=== PATIENT | female | born 1985 | race Caucasian/White ===

== ENCOUNTER 2016-10-04 14:08 | Inpatient (IN) | payer BC, OTHER ==
[~2016-10-04] VITALS: Ht 165.1 cm; Wt 52.2 kg
--- NOTE | 2016-10-04 16:15 | NUR ---
Intake assessment Pt seen down in intake, pt VS are stable, pt cleared to come to unit. Will continue to monitor and further assess pt upon arrival to the unit.
--- NOTE | 2016-10-04 16:40 | NUR ---
Admission Note Pt ambulated on to the unit with MEDICAID BUSINESS ANALYST. Pt is AxOx4. Pt is being admitted for opiate dependence. Pt educated and oriented to unit and procedures. Pt denies any PMhx. Skin check and body check completed, no open wounds noted. pt denies any history of seizures. Pt states that she does not take any medications at home. Pt states that she is allergic to Haldol. Pt states that her PCP is Dr Keen. Refuses to have the pneumococcal vaccine. Denies SI/HI. Pt agreed to HIV testing. Pt states that her LBM was 10/01/16 and that she is constipated but that she does not feel any discomfort, states "this is what happens when I am using". Pt states that her LMP was 09/20/16. VS upon admission were: BP 96/59, HR 93, R: 17, SpO2 98% on RA, T: 98.2, denies any pain, has a COWS of 10. Pt states that she is 5'[address] weighs [address] Antoine has already seen the pt and will be inputting admission orders. Pt reports using the following substances: heroin 0.25G IV daily since 09/24/16, last use was a "small amount" on 10/04/16 in the AM. Pt states that she has smoked an unknown amount of marijuana twice, last use being 10/04/16. Will continue to monitor pt, all needs addressed at this time, pt states that she is comfortable at this time. Pt states that she can not recall her treatment history, pt states "I am currently in treatment, but relapsed after being sober for 90 days".
[2016-10-04 16:41] LABS: *AMPHETAMINE, URINE NEGATIVE (NEGATIVE); *BARBITURATE, URINE NEGATIVE (NEGATIVE); *CANNABINOID, URINE POSITIVE (NEGATIVE); *COCCAINE, URINE NEGATIVE (NEGATIVE); *OPIATE, URINE POSITIVE (NEGATIVE); *PHENCYCLIDINE SCREEN,URINE NEGATIVE (NEGATIVE)
[2016-10-04 16:45] VITALS: BP 96/59
[2016-10-04] MEDS ORDERED: ONDANSETRON 4 MG/2 ML VIAL IM PRN (16:45)
[2016-10-04] MEDS ORDERED: IBUPROFEN 600 MG TABLET PO PRN (16:45)
[2016-10-04] MEDS ORDERED: CLONIDINE HCL 0.1 MG TABLET PO PRN (16:45)
[2016-10-04] MEDS ORDERED: BUPRENORPHINE HCL 2 MG TAB.SUBL SL PRN (16:45)
[2016-10-04] MEDS ORDERED: ACETAMINOPHEN 325 MG TABLET PO PRN (16:45)
[2016-10-04] MEDS ORDERED: MAG HYDROX/AL HYDROX/SIMETH 30 ML LIQUID UDC PO PRN (16:45)
[2016-10-04] MEDS ORDERED: MIRALAX 17 GM POWD.PACK PO PRN (16:45)
[2016-10-04] MEDS ORDERED: DICYCLOMINE HCL 20 MG TABLET PO PRN (16:45)
[2016-10-04] MEDS ORDERED: LOPERAMIDE HCL 2 MG CAPSULE PO PRN ×2 (16:45)
[2016-10-04] MEDS ORDERED: ONDANSETRON ODT 4 MG TAB.RAPDIS SL PRN (16:45)
[2016-10-04] MEDS ORDERED: METHOCARBAMOL 750 MG TABLET PO PRN (16:45)
[2016-10-04 17:07] LABS: *URINE HCG, QUAL NEGATIVE (NEGATIVE)
[2016-10-04] MEDS: LORAZEPAM 1 MG TABLET PO PRN (17:32)
--- NOTE | 2016-10-04 17:32 | NUR ---
PRN administration Pt c/o withdrawal s/s. Pt has a COWS of 10 and severe anxiety. Administered PRN ativan per MD order. Will continue to monitor pt.
--- NOTE | 2016-10-04 18:32 | NUR ---
Reassessment Pt is currently sleeping in her bed. Will continue to monitor pt. All needs addressed at this time.
--- NOTE | 2016-10-04 18:53 | NUR ---
End of shift note Pt was admitted for opiate dependence. Pt denies any PMHx. Pt states that she is allergic to Haldol., is a full code and on a regular diet. Pt is on PRN medications to manage her s/s of withdrawal. Pt had one PRN ativan during the shift with effectiveness to mange her s/s of withdrawal. Pt is comfortable at this time. Pt ate 25% of her dinner. And voided x 2 during the shift. Pt is currently sleeping in her bed, no signs of distress noted. Will endorse SBAR to oncoming shift.
[2016-10-04 19:53] LABS: BASOPHILS % (AUTO) 0.5 % (0.0-2.0); EOSINOPHILS # (AUTO) 0.1 K/uL (0.0-0.7); EOSINOPHILS % (AUTO) 1.3 % (0.0-7.0); HEMOGLOBIN 12.9 G/DL (12.0-16.0); LYMPHOCYTES # (AUTO) 2.1 K/UL (0.8-4.8); LYMPHOCYTES % (AUTO) 25.9 % (20.5-51.5); MEAN CORPUSCULAR HGB CONC 33 g/dL (32.0-37.0); MEAN CORPUSCULAR VOLUME 84.4 FL (81.0-99.0); MONOCYTES # (AUTO) 0.9 K/UL (0.1-1.30); MONOCYTES % (AUTO) 10.5 % (0.0-11.0); NEUTROPHILS % (AUTO) 61.8 % (38.5-71.5); PLATELET COUNT (AUTO) 344 K/UL (150-450); RED BLOOD CELL COUNT(AUTO) 4.61 MIL/UL (4.2-5.4); WHITE BLOOD COUNT (AUTO) 8.1 K/UL (4.0-11.2)
[2016-10-04 20:00] VITALS: BP 100/70
--- NOTE | 2016-10-04 20:00 | NUR ---
START OF SHIFT NOTE RECEIVED REPORT FROM DAY SHIFT NURSE. PATIENT IS A 30 YEAR OLD FEMALE NEWLY ADMITTED FOR OPIATE DEPENDENCE. PATIENT IS ON PRN SUBUTEX AND PRN ATIVAN . PATIENT IS ALLERGIC TO HALDOL. UPON ADMISSION, PATIENT REPORTED RELAPSED 10 DAYS AGO, PATIENT HAS BEEN USING HEROIN IV 0.25 GRAM DAILY AND MARIJUANA FOR UNKNOWN AMOUNT USED X 2. NO SEIZURE HISTORY. PATIENT WAS GIVEN PRN ATIVAN. LAST COWS 10. SKIN INTACT. ON FALL PRECAUTION. SAFETY MEASURES IN PLACE. CALL LIGHT IN REACH. WILL CONTINUE TO MONITOR.
[2016-10-04 20:04] LABS: ALANINE AMINOTRANSFERASE 24 U/L (14-59); ALKALINE PHOSPHATASE 69 U/L (50-136); ASPARTATE AMINOTRANSFERASE 17 U/L (15-37); BILIRUBIN,TOTAL 0.6 mg/dL (0.2-1.0); CARBON DIOXIDE 30 mmol/L (21-32); CHLORIDE 104 mmol/L (98-107); CREATININE 0.8 mg/dL (0.6-1.3); GLUCOSE 89 mg/dL (74-106); POTASSIUM 4.2 mmol/L (3.5-5.1); UREA NITROGEN, BLOOD 13 mg/dL (7-18)
[2016-10-04 20:07] LABS: ETHANOL < 3 MG/DL (0-0)
[2016-10-04] MEDS: PRAZOSIN HCL 1 MG CAPSULE PO SCH (21:57)
[2016-10-04] MEDS: HYDROXYZINE PAMOATE 25 MG CAPSULE PO PRN (21:58)
[2016-10-04] MEDS: diphenhydrAMINE 50 MG CAPSULE PO PRN (21:58)
--- NOTE | 2016-10-04 21:58 | NUR ---
PRN BENADRYL,ROBAXIN AND VISTARIL ADMINISTRATION PATIENT C/O BODY ACHES 4/10, ANXIETY AND REQUESTS FOR SLEEP AID. PRN BENADRYL, ROBAXIN AND VISTARIL GIVEN .WILL MONITOR FOR EFFECTIVENESS
--- NOTE | 2016-10-04 22:58 | NUR ---
RHETT MCCABE ANS VISTARIL AND BENADRYL RE-ASSESSMENT PATIENT IN BED, ASLEEP AT THIS TIME. NO S/S OF DISTRESS. NO FACIAL GRIMACING. RESPIRATION EVEN AND UNLABORED. SAFETY MEASURES IN PLACE. CALL LIGHT IN REACH. WILL CONTINUE TO MONITOR
[2016-10-05] VITALS: BP 86/59
[2016-10-05] MEDS: LORAZEPAM 1 MG TABLET PO PRN ×4 (02:29→21:50)
--- NOTE | 2016-10-05 02:29 | NUR ---
PRN ATIVAN ADMINISTRATION PATIENT C/O ANXIETY, RESTLESSNESS, SWEATING,MILDLY AGITATED . NON-PHARMACOLOGICAL INTERVENTION INEFFECTIVE. BP-93/65 P-104. CIWA8. WILL MONITOR EFFECTIVENESS
--- NOTE | 2016-10-05 03:29 | NUR ---
RHETT ATIVAN RE-ASSESSMENT PATIENT IN BED, SHE STATES SHE'S LESS ANXIOUS , MEDICATION IS WORKING AND WILL TO GO BACK TO SLEEP. WILL CONTINUE TO MONITOR. Addendum: 10/05/16 at 0557 by CAIN CRAFT LVN DELMAR 3 AT THIS TIME.
[2016-10-05 04:00] VITALS: BP 98/62
--- NOTE | 2016-10-05 07:18 | NUR ---
START OF SHIFT Received report from overnight stocker nurse. 30 year old female patient admitted on 10/04/16 for medically supervised heroin withdrawals. Pt reports using 0.25g for the past 10 days. Pt taper has not been initiated yet, pt continues on PRN mediations. PRN Ativan 2mg, Robaxin, Benadryl and Vistaril administered at night and effective. Pt slept for 10 hours and most recent COWS is 2. Pt is sleeping in bed at this time RR even and unlabored. Per report, V/S remain WNL throughout night. All needs met at this time. Will continue monitor.
--- NOTE | 2016-10-05 07:27 | NUR ---
END OF SHIFT NOTE PATIENT IS A 30 YEAR OLD FEMALE NEWLY ADMITTED FOR OPIATE DEPENDENCE. PATIENT IS ON PRN SUBUTEX AND PRN ATIVAN. PATIENT IS ALLERGIC TO HALDOL. UPON ADMISSION, PATIENT REPORTED RELAPSED 10 DAYS AGO, PATIENT HAS BEEN USING HEROIN IV 0.25 GRAM DAILY AND MARIJUANA FOR UNKNOWN AMOUNT USED X 2. NO SEIZURE HISTORY. PATIENT IN HER ROOM MOST OF THE SHIFT. PATIENT WAS GIVEN PRN BENADRYL, VISTARIL AND ROBAXIN GIVEN AT 2158 . AT 0229, PATIENT REPORTS ANXIETY , RESTLESSNESS, MILDLY AGITATED , UNABLE TO GO BACK TO SLEEP. ASSESSED AND CIWA 8. PRN ATIVAN GIVEN AND CIWA WENT DOWN TO 3. PATIENT COMPLIANT WITH MEDICATION AND WILL ENCOURAGE TO ATTEND GROUPS AND PARTICIPATE IN ACTIVITIES. SKIN INTACT. ON FALL PRECAUTION. SAFETY MEASURES IN PLACE. CALL LIGHT IN REACH. WILL CONTINUE TO MONITOR. SLEPT 10 HOURS. FLUID INTAKE 500 ML. VOIDED X . BM. LAST COWS 2 PATIENT REPORTS BURNING AND PAIN URINATING. DR. TRIPLETT MADE AWARE, ENDORSED TO NEXT SHIFT TO FOLLOW UP FOR ORDER.
[2016-10-05 08:06] VITALS: BP 101/66
--- NOTE | 2016-10-05 08:20 | NUR ---
REFUSING PPD Pt is refusing PPD test, pt states she was at a rehab where she was tested and was negative. Pt does not present with s/s of tuberculosis at this time. Will notify
[2016-10-05] MEDS ORDERED: TUBERCULIN,PURIF.PROT.DERIV. 5 TU/0.1 ML TEST ID ONE (09:00)
[2016-10-05] MEDS: HYDROXYZINE PAMOATE 25 MG CAPSULE PO PRN ×2 (09:25→18:05)
[2016-10-05] MEDS: MULTIVITAMINS,THERAPEUTIC TABLET PO SCH (09:25)
--- NOTE | 2016-10-05 09:31 | NUR ---
PRN ATIVAN AND VISTARIL Pt has increased agitation and is restless, states that Clonidine gives her an adverse reaction and refuses it. Pt appears anxious. As ordered by MD, PRN Ativan and Vistaril administered as ordered. Pt education provided. Will reassess.
--- NOTE | 2016-10-05 10:31 | NUR ---
REASSESSMENT Pt reports medications were effective. Pt appears less anxious.
[2016-10-05 12:27] VITALS: BP 107/77
--- NOTE | 2016-10-05 13:46 | NUR ---
PRN ATIVAN Pt has increased agitation and is restless, pt states she is anxious. As ordered by MD, PRN Ativan administered. Pt education provided. Will reassess.
--- NOTE | 2016-10-05 14:46 | NUR ---
REASSESSMENT Pt states Ativan was effective. Pt appears less agitated and reports anxiety decreased.
[2016-10-05 17:01] LABS: *BILIRUBIN,URIN NEGATIVE (NEGATIVE); *BLOOD, URINE NEGATIVE (NEGATIVE); *CLARITY,URINE SLIGHTLY CLOUDY (CLEAR); *KETONES,URINE NEGATIVE (NEGATIVE); *PROTEIN,URINE TRACE (NEGATIVE); LEUKOCYTE ESTERASE ,URINE TRACE (NEGATIVE); NITRITE, URINE NEGATIVE (NEGATIVE); PH,URINE 8.5 (5.0-8.0); UGLUCOSE NEGATIVE (NEGATIVE)
[2016-10-05 17:09] VITALS: BP 102/55
[2016-10-05 17:35] LABS: *COLOR,URINE YELLOW (YELLOW)
[2016-10-05 17:36] LABS: BACTERIA,URINE MODERATE /HPF (NONE SEEN); MUCUS,URINE MODERATE /LPF (0-FEW); SQUAMOUS EPITHELIAL CELL,UR MANY /HPF (NONE SEEN); WBC,URINE 20-50 /HPF (0-3)
[2016-10-05] MEDS: NITROFURANTOIN/NITROFURAN MAC 100 MG CAPSULE PO SCH ×2 (18:03→21:49)
--- NOTE | 2016-10-05 18:03 | NUR ---
NEW MEDICATION ORDER Pt urine was collected for urinalysis and results are positive for UTI. Pt was started on Macrobid 100mg Q12H. Pt education provided.
--- NOTE | 2016-10-05 18:05 | NUR ---
PRN VISTARIL PRN Vistaril administered for anxiety. Will reassess.
[2016-10-05] MEDS ORDERED: HYDR-3895 PO (18:06)
[2016-10-05] MEDS ORDERED: DIPH50CA37 PO (18:06)
[2016-10-05] MEDS ORDERED: PRAZ1CAP2 PO (18:06)
[2016-10-05] MEDS ORDERED: NITR100C11 PO (18:06)
[2016-10-05] MEDS ORDERED: METH-406 PO (18:06)
[2016-10-05] MEDS ORDERED: IBUP-1955 PO (18:06)
[2016-10-05] MEDS ORDERED: DICY20TA28 PO (18:06)
--- NOTE | 2016-10-05 19:03 | NUR ---
END OF SHIFT Endorsed to night nurse, 30 year old female patient admitted on 10/04/16 for medically supervised heroin withdrawals. Pt reports using 0.25g for the past 10 days. Pt taper has not been initiated yet, pt continues on PRN mediations. PRN Ativan 2mg x2, and PRN Vistaril 25 mg x2 administered as ordered by MD. Pt encouraged to verbalize feelings, pt did not attend groups or activities. Most recent COWS is 6. V/S are WNL but pt has bouts of tachycardia. Pt remains stable. All needs met at this time. fast food shift lead nurse to continue monitor.
--- NOTE | 2016-10-05 19:05 | NUR ---
REASSESSMENT Medication was effective, pt reports decreased anxiety. Pt encouraged to use nonpharmacological methods to increase comfort and decrease anxiety.
--- NOTE | 2016-10-05 19:15 | NUR ---
Received report from morning nurse. Patient in bed, awake, alert and oriented x4. Complained of restlessness, irritability, and anxiety. Patient admitted for Heronin withdrawal. Allergy to haldol. Per report last COWS 6. Isolative to her room and did not attend groups. Speech is clear and able to make her needs known. Denies SI/HI/AVH. Will continue to monitor behavior and medication effectiveness.
[2016-10-05 20:00] VITALS: BP 104/78
[2016-10-05] MEDS: diphenhydrAMINE 50 MG CAPSULE PO PRN (21:49)
[2016-10-05] MEDS: PRAZOSIN HCL 1 MG CAPSULE PO SCH (21:49)
[2016-10-06 00:28] VITALS: BP 94/65
[2016-10-06 04:00] VITALS: BP 91/52
--- NOTE | 2016-10-06 04:00 | NUR ---
Patient asleep. Refused COWS assessment. Respiration even and unlabored. Will continue to monitor sleep pattern. Addendum: 10/06/16 at 0520 by KIMBERLY CASH RN Amended: Links added.
--- NOTE | 2016-10-06 05:49 | NUR ---
End of shift notes: Patient remained calm and cooperative with care. Slept 7 hours. Respiration even and unlabored. No signs of distress. Compliant with medication and unit rules. Vital signs stable and charted accordingly. Obtained PRN ativan 2mg. Administered Benadryl 50mg and ativan 2mg PRN last night for anxiety and insomnia. Patient tolerated well. No behavior issues. Encouraged to express feelings and concerns. All needs met. Will continue to monitor behavior and medication effectiveness.
[2016-10-06 06:07] LABS: HEPATITIS B SURFACE AG Negative (Negative)
--- NOTE | 2016-10-06 07:05 | NUR ---
Start of shift note Pt was admitted for opiate dependence. Pt denies any PMHx. Pt is on macrobid for a UTI. Pt reports an allergy to hadol, is a full code and on a regular diet. Pt PRN ativan was continued over the previous shift to manage her s/s of withdrawal. Pt is currently resting in bed, states that she is comfortable at this time. Will continue to monitor pt. All needs addressed at this time.
[2016-10-06 08:00] VITALS: BP 103/66
[2016-10-06] MEDS: NITROFURANTOIN/NITROFURAN MAC 100 MG CAPSULE PO SCH ×2 (09:08→21:08)
[2016-10-06] MEDS: MULTIVITAMINS,THERAPEUTIC TABLET PO SCH (09:08)
--- NOTE | 2016-10-06 11:03 | NUR ---
PRN administration Pt is extremely agitated. Administered PRN ativan per MD order, Dr Antoine aware. Pt informed that this is the last dose of ativan that she will receive d/t her being scheduled to discharge 10/07/16. Pt verbalized her understanding.
[2016-10-06] MEDS: LORAZEPAM 1 MG TABLET PO PRN (11:04)
--- NOTE | 2016-10-06 12:03 | NUR ---
Reassessment Pt states that the ativan was effective in reliving her anxiety. Pt is no longer severely agitated and is laying in her bed reading a book.
[2016-10-06 12:30] VITALS: BP 103/69
[2016-10-06] MEDS: BACLOFEN 10 MG TABLET PO SCH ×2 (14:14→21:08)
--- NOTE | 2016-10-06 14:15 | NUR ---
Medication Refused Pt refused baclofen. Pt states that she just wants to sleep.
[2016-10-06 16:00] VITALS: BP 97/60
[2016-10-06 16:55] LABS: *AMPHETAMINE, URINE NEGATIVE (NEGATIVE); *BARBITURATE, URINE NEGATIVE (NEGATIVE); *CANNABINOID, URINE POSITIVE (NEGATIVE); *COCCAINE, URINE NEGATIVE (NEGATIVE); *OPIATE, URINE POSITIVE (NEGATIVE); *PHENCYCLIDINE SCREEN,URINE NEGATIVE (NEGATIVE)
--- NOTE | 2016-10-06 19:05 | NUR ---
Discharge of shift note Pt was admitted for opiate dependence. Pt denies any PMHx. Pt is on macrobid for a UTI and tolerating well. Pt reports an allergy to haldol, is a full code and on a regular diet. Pt had one dose of ativan PRN for her anxiety/agitation with success. Pt is scheduled to discharge tomorrow, pt states that she feels ready. Pt had a recent COWS of 2. VS are WNL. Pt drank 1680ml of fluids, had 3 voids and no BM's during the shift. Pt ate 75% of breakfast, refused lunch and ate 100% of dinner. Pt has no complaints at this time. SBAR report given to oncoming nurse.
--- NOTE | 2016-10-06 19:06 | NUR ---
Start of shift note Received report from day shift nurse. Pt is a 30 yo female, A+Ox4, presenting to [facility] for Opiate/Marijuana dependence. Pt has Allergies to Haldol, is on Full Code status, and on Regular diet. Pt is on Fall and Seizure precautions. Pt has HX of Left arm ORIF. Pt is on PRN medications for observation, tolerated well, and is due for discharge today. No s/s of distress noted at this time. Respirations even and unlabored. Will continue to monitor.
[2016-10-06 20:08] VITALS: BP 114/73
[2016-10-06] MEDS: PRAZOSIN HCL 1 MG CAPSULE PO SCH (21:08)
[2016-10-06] MEDS: LACTOBACILLUS RHAMNOSUS GG 1 EACH CAPSULE PO SCH (21:08)
[2016-10-06] MEDS: diphenhydrAMINE 50 MG CAPSULE PO PRN (21:12)
--- NOTE | 2016-10-06 21:12 | NUR ---
PRN Benadryl Pt c/o inability to sleep and requested PRN Benadryl. Medication given and tolerated well. Will reassess within 1 HR. Will continue to monitor.
--- NOTE | 2016-10-06 22:09 | NUR ---
PRN Benadryl Reassessment Medication effective. Pt is resting well in bed. No s/s of ASE/distress noted at this time. Respirations even and unlabored. Will continue to monitor.
[2016-10-07 00:23] VITALS: BP 110/68
[2016-10-07 04:34] VITALS: BP 112/71
--- NOTE | 2016-10-07 07:00 | NUR ---
End of shift note Pt is a 30 yo female, A+Ox4, presenting to [facility] for Opiate/Marijuana dependence. Pt has Allergies to Haldol, is on Full Code status, and on Regular diet. Pt is on Fall and Seizure precautions. Pt has HX of Left arm ORIF. Pt is on PRN medications for observation, tolerated well, and is due for discharge today. Pt was given PRN Benadryl @2112. Pt slept for a total of 7 HRS. Last COWS: 1 @0400. No s/s of distress noted at this time. Respirations even and unlabored. Will endorse to day shift nurse.
--- NOTE | 2016-10-07 07:15 | NUR ---
Start of shift note Pt was admitted for opiate dependence. Pt reports an allergy to hadol, is a full code and on a regular diet. Pt denies any PMHx. Pt is on macrobid for a UTI and tolerating well, per Dr Antoine she needs to continue to for 4 more days after discharge, pt verbalized her understanding. Pt states that she feels ready for discharge. Pt has no complaints. Will continue to monitor pt. All needs addressed at this time.
[2016-10-07 08:00] VITALS: BP 93/60
[2016-10-07] MEDS: LACTOBACILLUS RHAMNOSUS GG 1 EACH CAPSULE PO SCH (08:08)
[2016-10-07] MEDS: NITROFURANTOIN/NITROFURAN MAC 100 MG CAPSULE PO SCH (08:08)
[2016-10-07] MEDS: MULTIVITAMINS,THERAPEUTIC TABLET PO SCH (08:09)
[2016-10-07] MEDS: BACLOFEN 10 MG TABLET PO SCH (08:09)
--- NOTE | 2016-10-07 08:10 | NUR ---
Medication refusal Pt refused to take baclofen, and pt states that she doesn't want to take anything for her pain. Will continue to monitor pt.
--- NOTE | 2016-10-07 09:40 | NUR ---
PRN administration Pt c/o nausea and dyspepsia. Administered PRN zofran and maalox per MD order, will continue to monitor pt.
--- NOTE | 2016-10-07 10:10 | NUR ---
Reassessment Pt states that the medications were effective in alleviating her nausea. Encouraged pt to eat crackers and drink sprite as well. Will continue to monitor pt.
--- NOTE | 2016-10-07 11:55 | NUR ---
Discharge note Pt was admitted for opiate dependence. Pt had a COWS of 2. VS are WNL. Pt states that she feels ready for discharge. Denies SI/HI. Pt verbalized her understanding of the discharge instructions. Pt discharge instructions, prescriptions and all belongings returned to pt. Pt ID band removed, pt ambulated off of the unit, left via [facility].
== END 2016-10-07 11:55 | disposition home or self-care (01) | DRG 895 ==
LOC: SRC 15:41
PROVIDERS: ADMIT Internal Medicine; ATTEND Internal Medicine
PROC: HZ2ZZZZ Detoxification Services for Substance Abuse Treatment (ICD-10-PCS; principal; 2016-10-04)
PROC: HZ31ZZZ Individual Counseling for Substance Abuse Treatment, Behavioral (ICD-10-PCS; 2016-10-07)
DX: F11.23 Opioid dependence with withdrawal (principal); N30.00 Acute cystitis without hematuria; F17.210 Nicotine dependence, cigarettes, uncomplicated; F51.4 Sleep terrors [night terrors]; G47.00 Insomnia, unspecified; Z81.1 Family history of alcohol abuse and dependence; Z81.8 Family history of other mental and behavioral disorders; Z82.49 Family history of ischemic heart disease and other diseases of the circulatory system; F12.90 Cannabis use, unspecified, uncomplicated
CPT/HCPCS: 36415; 70030-TC; 80307; 80349; 80361; 83735; 84703; 85025; 86592; 86705; 86803; 87340; 87806; A4663; G0480; Q0163